=== PATIENT | male | born 1945 ===

== ENCOUNTER 2024-08-20 06:21 | Day surgery (SDC) | payer OTHER ==
[~2024-08-20] VITALS: Ht 180.3 cm; Wt 89.6 kg
[~2024-08-20 06:21] MED LIST: Balanced Salt Epinephrine Irrigation Solution 500 mL IR SCH; Diazepam 5 MG Tab PO PRN; Diazepam 5 MG Tab PO SCH; Lidocaine HCl/Pf 1% 5 ML VIAL XX SCH; Moxifloxacin HCL 0.5 MG/0.1 ML 0.4MLSYR LEFTEYE SCH; Ondansetron 4 MG SoluTab MM PRN; PHENYLEPHRINE\\TROPICAMIDE\\TETRACAINE OPHTHALMIC DILATING SOLN LEFTEYE PRN; Povidone-Iodine 450 DROP/30 ML Solution LEFTEYE SCH; Povidone-Iodine 450 DROP/30 ML Solution ONE; Tetracaine HCl/Pf 0.5% Opth Soln 4 ml ONE; Triamcinolone Inj Susp 40 MG / ML 1ML Vial INJ SCH
[2024-08-20] MEDS ORDERED: Diazepam 10 MG Tab ONE (06:32)
[2024-08-20] MEDS ORDERED: Lidocaine HCl 4% 5 ML SDA ONE (06:49)
[2024-08-20] MEDS ORDERED: Triamcinolone Inj Susp 40 MG / ML 1ML Vial ONE (06:49)
[2024-08-20] MEDS ORDERED: METO25ER PO (06:52)
[2024-08-20] MEDS ORDERED: AMLO10 PO (06:52)
[2024-08-20] MEDS ORDERED: FISH OIL 1,0001 EA10 PO (06:55)
[2024-08-20] MEDS ORDERED: METF500 PO (06:55)
[2024-08-20] MEDS ORDERED: HYDROCHLOROTH12.5 MG PO (06:56)
[2024-08-20] MEDS ORDERED: LOSA50 PO (06:56)
[2024-08-20] MEDS ORDERED: GABA800 PO (06:57)
[2024-08-20] MEDS ORDERED: GLUCHON PO (06:59)
--- NOTE | 2024-08-20 07:11 | NUR ---
08/20/24 0711 RICHY BOLAÑOS PT RESTING ON GURNEY, CALL LIGHT IN HAND. GURNEY RAILS UP, BRAKES LOCKED. DISCHARGE INSTRUCTIONS PROVIDED. PT DENIES QUESTIONS. PT DECLINES TO HAVE AT BEDSIDE AT THIS TIME.
--- NOTE | 2024-08-20 08:02 | NUR ---
08/20/24 0802 Dominga Mack BP-[id number] P-59 [id number]% 10L BLOW BY O2
--- NOTE | 2024-08-20 08:21 | NUR ---
08/20/[address] AT BEDSIDE
== END 2024-08-20 08:41 | disposition home or self-care (01) ==
LOC: ORSCSDS 06:21
PROVIDERS: Ophthalmology
PROC: 08RK3JZ Replacement of Left Lens with Synthetic Substitute, Percutaneous Approach (ICD-10-PCS; principal; 2024-08-20 08:00)
DX: E11.36 Type 2 diabetes mellitus with diabetic cataract (principal); H25.813 Combined forms of age-related cataract, bilateral; Z87.891 Personal history of nicotine dependence; I10 Essential (primary) hypertension; Z79.82 Long term (current) use of aspirin; Z79.84 Long term (current) use of oral hypoglycemic drugs; Z79.899 Other long term (current) drug therapy
CPT/HCPCS: A9270; J2003; J3301; V2632